=== PATIENT | female | born 1955 | race Caucasian/White ===

== ENCOUNTER → 2019-08-07 15:44 | Outpatient (BNVA) | payer MEDICARE, OTHER, SELFPAY | PROVIDERS: PCP Family Medicine; Visit Provider Family Medicine | DX: R05 Cough (principal); N39.0 Urinary tract infection, site not specified; B37.9 Candidiasis, unspecified; M62.830 Muscle spasm of back; Z87.440 Personal history of urinary (tract) infections | CPT/HCPCS: 81003; 87077; 87086; 87186 ==

== ENCOUNTER → 2021-07-28 16:19 | Outpatient (BNVA) | payer MEDICARE, OTHER, SELFPAY | PROVIDERS: PCP Family Medicine; Visit Provider Nurse Practitioner Family | DX: Z11.52 Encounter for screening for COVID-19 (principal); Z20.822 Contact with and (suspected) exposure to COVID-19 | CPT/HCPCS: 87635 ==

== ENCOUNTER 2024-04-07 13:26 | Emergency (ER) | payer MEDICARE, OTHER, SELFPAY ==
--- NOTE | 2024-04-07 13:27 | ECG_ITS ---
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 Measurements Intervals [place] Rate: 72 P: 31 NC: 178 QRS: -32 QRSD: 81 T: 54 QT: 383 QTc: 421 Interpretive Statements SINUS RHYTHM LEFT AXIS DEVIATION [QRS AXIS < -30] LOW QRS VOLTAGE IN PRECORDIAL LEADS [QRS DEFLECTION < 1.0 mV IN CHEST LEADS] POSSIBLE ANTERIOR MYOCARDIAL INFARCTION , PROBABLY OLD [30 ms Q WAVE IN V3/V4, OR R < 0.2 mV IN V4] No previous ECG available for comparison Electronically Signed On 04-07-2024 16:51:07 CDT by Nasra Bey M.D. [id number]
[2024-04-07 13:35] VITALS: BP 122/73; PULSE 72; RESP 18; TEMP 36.8; O2SAT 98; BMI 44.8
--- NOTE | 2024-04-07 14:57 | XR_ITS ---
WS: [id number] XR chest 1V portable [id number] REASON FOR EXAM: chest pain FINDINGS: The chest is relatively unchanged compared to 11/27/2015. There is borderline cardiomegaly. Widened mediastinum is likely due to excessive mediastinal fat. Nor mal thoracic aorta. Calcified granulomatous disease in both hemithoraces. No acute pulmonary parenchymal or pleural abnormality. XR/XR chest 1V portable [id number] IMPRESSION: Stable chest without acute abnormality.
--- NOTE | 2024-04-07 14:59 | W.ED.CHESTPA ---
HPI - Chest Pain General: Chief Complaint: Chest Pain Stated Complaint: CP Time Seen by Provider: 04/07/24 14:51 History of Present Illness: Presents to the ER with complaints of chest pain under her left breast. Is nonradiating not reproducible with pain. Started about 10 minutes arrival prior to the ER. Patient says she normally has substernal chest pain that radiates to her back every day but this is different than that. Patient said that taking a big deep breath might make it worse but nothing else makes it worse or makes it better. Patient has COPD and is oxygen dependent on 3 L. And gets chronically short of breath with activities. Patient [place] any nausea vomiting or diaphoresis. Related Data Home Medications Medication Instructions Recorded Confirmed amitriptyline 25 mg tablet 25 mg PO .hs 08/07/19 07/28/21 aspirin 81 mg chewable tablet 81 mg PO ONCE 08/07/19 07/28/21 (Leonel Chewable Low Dose Aspirin) bupropion HCl 150 mg tablet,12 hr 150 mg PO BID 08/07/19 07/28/21 sustained-release duloxetine 30 mg capsule,delayed 30 mg PO ONCE 08/07/19 07/28/21 release estradiol 0.5 mg tablet 0.5 mg PO ONCE 08/07/19 07/28/21 fluticasone propionate 50 2 spray intranasal BID 08/07/19 07/28/21 mcg/actuation nasal spray,suspension (Flonase Allergy Relief) gabapentin 800 mg tablet 800 mg PO TID 08/07/19 07/28/21 hydrocodone 5 mg-acetaminophen 325 1 tab PO Q6H PRN 08/07/19 07/28/21 mg tablet hydrocodone 7.5 mg-acetaminophen 1 tab PO Q6H PRN 08/07/19 07/28/21 325 mg tablet hydroxychloroquine 200 mg tablet 200 mg PO BID 08/07/19 07/28/21 hydroxyzine HCl 25 mg tablet 25 mg PO TID PRN 08/07/19 07/28/21 levothyroxine 75 mcg tablet 200 mcg PO ONCE 08/07/19 07/28/21 metformin 500 mg tablet 500 mg PO BID 08/07/19 07/28/21 montelukast 10 mg tablet 10 mg PO ONCE 08/07/19 07/28/21 omega-3 fatty acids 1,000 mg 1,000 mg PO BID 08/07/19 07/28/21 capsule (Fish Oil Concentrate) oxybutynin chloride 5 mg tablet 5 mg PO TID 08/07/19 07/28/21 pioglitazone 15 mg tablet (Actos) 15 mg PO ONCE 08/07/19 07/28/21 sumatriptan succinate 50 mg tablet See Rx Instructions PO .COMPLEX 08/07/19 07/28/21 tramadol 50 mg tablet 50 mg PO Q6H PRN 08/07/19 07/28/21 venlafaxine 37.5 mg tablet 37.5 mg PO DAILY 08/07/19 07/28/21 zolpidem 5 mg tablet 5 mg PO ONCE 08/07/19 07/28/21 Previous Rx's Medication Instructions Recorded baclofen 20 mg tablet 20 mg PO TID #60 tabs 08/07/19 levofloxacin 750 mg tablet 750 mg PO QDAY #7 tabs 01/05/20 (Levaquin) benzonatate 100 mg capsule 100 mg PO BID PRN cough #30 caps 07/28/21 (Tessalon Perles) methylprednisolone 4 mg tablets in See Rx Instructions PO PER PKG DIR 07/28/21 a dose pack (Medrol (Heladio)) #21 ea Allergies Allergy/AdvReac Type Severity Reaction Status Date / Time cephalexin [From Keflex] Allergy Unknown Verified 04/07/24 13:41 clindamycin [From Cleocin] Allergy Unknown Verified 04/07/24 13:41 codeine Allergy Unknown Verified 04/07/24 13:41 erythromycin base Allergy Unknown Verified 04/07/24 13:41 lincomycin [From Lincocin] Allergy Unknown Verified 04/07/24 13:41 meperidine [From Demerol] Allergy Unknown Verified 04/07/24 13:41 Penicillins Allergy Unknown Verified 04/07/24 13:41 Sulfa (Sulfonamide Allergy Unknown Verified 04/07/24 13:41 Antibiotics) Tetracyclines Allergy Unknown Verified 04/07/24 13:41 thiethylperazine [Torecan] Allergy Unknown Verified 04/07/24 13:41 vitamin E (d-alpha Allergy Unknown Verified 04/07/24 13:41 tocopherol) Review of Systems General: Reports: 10 or more systems reviewed and unremarkable except in HPI and below PFSH ED PFSH: Medical History (Updated 04/07/24 @ 17:39 by Ranulfo Santo DO) Diabetes Thyroid disorder GERD (gastroesophageal reflux disease) Social History Smoking and tobacco/nicotine status: never used tobacco/nicotine Alcohol intake: never Substance/Drug Use: never Physical Exam Const: COMMON NORMALS: no acute distress, average body habitus, patient oriented x3, no limitations, healthy appearing, alert and well nourished HENMT: COMMON NORMALS: normocephalic, atraumatic, hearing grossly normal bilaterally, external ears normal, Normal external nose present and moist oral mucous membranes HEAD & SCALP: normocephalic and atraumatic NOSE: Normal external nose present EXTERNAL EAR: Yes external ears normal Neck/C-Spine: COMMON NORMALS: no JVD Chest: COMMONS NORMALS: normal inspection of the chest and normal palpation of entire chest wall Resp: COMMON NORMALS: normal respiratory effort, No retractions, No use of accessory muscles and clear to auscultation bilaterally AUSCULTATION: clear to auscultation bilaterally Cardio: COMMON NORMALS: no JVD, regular rate, regular rhythm, S1 normal heart sound present, S2 normal heart sound present, No gallops present (Cardio), No clicks present (Cardio), No murmurs present (Cardio) and No rub (Cardio) RATE: regular rate RHYTHM: regular rhythm HEART SOUNDS: S1 normal heart sound present and S2 normal heart sound present GI: COMMON NORMALS: Normal to inspection, nondistended, normoactive bowel sounds present, Soft to palpation, non-tender, No hepatosplenomegaly present and no masses PALPATION: Yes Soft to palpation and Yes No hepatosplenomegaly present Neuro: COMMON NORMALS: patient oriented x3 SENSORIUM/ORIENTATION: Yes alert Course Vital Signs: Vital signs: Vital Signs Temperature 98.2 F 04/07/24 13:35 Pulse Rate 63 04/07/24 15:39 Respiratory Rate 18 04/07/24 13:35 Blood Pressure 154/47 04/07/24 15:39 Pulse Oximetry 96 04/07/24 15:39 Oxygen Delivery Me thod Room Air 04/07/24 15:39 Oxygen Flow Rate 3 04/07/24 13:35 MDM - Chest Pain Medical Decision Making Upon further talking to the patient patient said that she was using her oxygen upstairs in her son's room and she was unnoticed at the bottle ran out. When she was hooked up to our oxygen she started feeling better immediately and eventually work her way back up to normal. Chest pain workup was started which was fairly benign. Patient was feeling much better these results was discussed with the patient. Patient is ready to be discharged. Differential Diagnosis Unlikely acute massive pulmonary embolism, acute respiratory failure, acute myocardial infarction, cardiac arrest or sudden cardiac Medical Records I reviewed the patient's medical records. Lab Data I reviewed the patient's lab results. 04/07/24 15:22 04/07/24 15:22 Radiology Impressions Chest X-Ray 04/07/24 14:57 IMPRESSION: Stable chest without acute abnormality. Laboratory Results WBC 5.54 10^3/uL (3.29-11.43) 04/07/24 15: RBC 4.23 10^6/uL (3.85-5.65) 04/07/24 15:22 Hgb 13.20 g/dL (11.27-16.99) 04/07/24 15:22 Hct 41.0 % (36-47) 04/07/24 15:22 MCV 96.9 fl (85-98) 04/07/24 15:22 MCH 31.2 pg (27-33) 04/07/24 15:22 MCHC 32.2 g/dL (30-55) 04/07/24 15:22 RDW 12.6 % (12.1-15.1) 04/07/24 15:22 Plt Count 297 10^3/cmm (157-399) 04/07/24 15:22 MPV 9.9 fL (7.4-10.4) 04/07/24 15:22 Neut % (Auto) 52.2 % 04/07/24 15:22 Lymph % (Auto) 35.2 % 04/07/24 15:22 [place] % (Auto) 9.9 % 04/07/24 15:22 Eos % (Auto) 1.6 % 04/07/24 15:22 Baso % (Auto) 0.9 % 04/07/24 15:22 Neut # (Auto) 2.89 10^3/uL (1.8-7.7) 04/07/24 15:22 Lymph # (Auto) 2.0 10^3/uL (0.8-4.8) 04/07/24 15:22 [place] # (Auto) 0.6 10^3/uL (0.2-0.9) 04/07/24 15:22 Eos # (Auto) 0.1 10^3/uL (0.0-0.8) 04/07/24 15:22 Baso # (Auto) 0.1 10^3/uL (0.0-0.1) 04/07/24 15:22 Nucleated RBC % (auto) 0 % 04/07/24 15:22 Nucleated RBCs # 0.0 /100WBC 04/07/24 15:22 Sodium 142 mmol/L (136-145) 04/07/24 15:22 Potassium 4.3 mmol/L (3.5-5.1) 04/07/24 15:22 Chloride 104 mmol/L (98-107) 04/07/24 15:22 Carbon Dioxide 28 mmol/L (22-29) 04/07/24 15:22 Anion Gap 14.3 (5-19) 04/07/24 15:22 BUN 14 mg/dL (8-23) 04/07/24 15:22 Creatinine 0.6 mg/dL (0.5-0.9) 04/07/24 15:22 GFR Calculation 99.4 mL/min (90-130) 04/07/24 15:22 Glucose 119 mg/dL (65-115) H 04/07/24 15:22 Calculated Osmolality 296 mOsm/kg (285-295) H 04/07/24 15:22 Calcium 9.3 mg/dL (8.5-10.5) 04/07/24 15:22 Total Bilirubin 0.2 mg/dL (0.15-1.2) 04/07/24 15:22 AST 17 U/L (0-32) 04/07/24 15:22 ALT 14 U/L (0-33) 04/07/24 15:22 Alkaline Phosphatase 98 U/L (35-105) 04/07/24 15:22 Troponin T Baseline 7 ng/L (0-10) 04/07/24 15:22 Troponin T 120 Minute 7.72 ng/L (0-10) 04/07/24 16:42 Delta Troponin T 0.72 ABS# (0-10) 04/07/24 16:42 Total Protein 6.8 g/dL (6.6-8.7) 04/07/24 15:22 Albumin 4.2 g/dL (3.5-5.2) 04/07/24 15:22 Globulin 2.6 g/dL (1.3-4.6) 04/07/24 15:22 All radiology interpretation(s) finalized by discharge EKG Data EKG 1: I personally reviewed and interpreted this EKG as follows: EKG interpretation date: 04/07/24 Interpretation: Rate 72 beats minute, MO interval 178, QRS 81, QTc of 421, sinus rhythm EKG 2: I personally reviewed and interpreted this EKG as follows: EKG interpretation date: 04/07/24 EKG interpretation time: 15:44 Interpretation: Ventricular rate 64 bpm, MO interval 199, QRS duration 85, QTc of 417, sinus rhythm Discharge Plan Discharge Patient Disposition: Home Clinical Impression: Chest pain Qualifiers: Chest pain type: unspecified Qualified Code(s): R07.9 - Chest pain, unspecified Condition: Stable Prescriptions: No Action benzonatate [Tessalon Perles] 100 mg capsule 100 mg PO BID PRN (Reason: cough) Qty: 30 1RF methylprednisolone [Medrol (Heladio)] 4 mg tablets,dose pack See Rx Instructions PO PER PKG DIR Qty: 21 0RF Rx Instructions: PO PER PKG DIR montelukast 10 mg tablet 10 mg PO ONCE amitriptyline 25 mg tablet 25 mg PO .hs gabapentin 800 mg tablet 800 mg PO TID omega-3 fatty acids [Fish Oil Concentrate] 1,000 mg capsule 1,000 mg PO BID venlafaxine 37.5 mg tablet 37.5 mg PO DAILY estradiol 0.5 mg tablet 0.5 mg PO ONCE sumatriptan succinate 50 mg tablet See Rx Instructions PO .COMPLEX Rx Instructions: as directed aspirin [Leonel Chewable Aspirin] 81 mg tablet,chewable 81 mg PO ONCE metformin 500 mg tablet 500 mg PO BID fluticasone propionate [Flonase Allergy Relief] 50 mcg/actuation spray,suspension 2 spray INTRANASAL BID oxybutynin chloride 5 mg tablet 5 mg PO TID duloxetine 30 mg capsule,delayed release(DR/EC) 30 mg PO ONCE bupropion HCl 150 mg tablet sustained-release 12 hr 150 mg PO BID hydrocodone-acetaminophen 7.5-325 mg tablet 1 tab PO Q6H PRN hydrocodone-acetaminophen 5-325 mg tablet 1 tab PO Q6H PRN hydroxychloroquine 200 mg tablet 200 mg PO BID hydroxyzine HCl 25 mg tablet 25 mg PO TID PRN levothyroxine 75 mcg tablet 200 mcg PO ONCE pioglitazone [Actos] 15 mg tablet 15 mg PO ONCE tramadol 50 mg tablet 50 mg PO Q6H PRN zolpidem 5 mg tablet 5 mg PO ONCE baclofen 20 mg tablet 20 mg PO TID Qty: 60 1RF levofloxacin [Levaquin] 750 mg tablet 750 mg PO QDAY Qty: 7 0RF Discharge Orders: Discharge ED (Routine); Ordered 04/07/24 Ordered By: Ranulfo Santo Referrals: Mikala Logan MD [Primary Care Provider] - 1 week Patient Instructions: Chest Pain (DC) Activity Restrictions/Additional Instructions: Your evaluation ER did not show any acute cause of your chest pain. Is felt to be noncardiac in nature. Please follow-up with your family proximal physician within next 7 days for further evaluation and treatment as needed. If your chest pain returns or worsens please return to the ER. Coding Level of Care Code ED Video Production Coordinator for Sebastien Mina
[2024-04-07 15:39] VITALS: BP 154/47; PULSE 63; O2SAT 96
[2024-04-07 15:44] LABS: Basophils # 0.1 10^3/uL (0.0-0.1); Basophils % 0.9 %; Eosinophils # 0.1 10^3/uL (0.0-0.8); Eosinophils % 1.6 %; Lymphocytes % 35.2 %; Mean Corpuscular HGB Conc 32.2 g/dL (30-55); Mean Corpuscular Hemoglobin 31.2 pg (27-33); Mean Corpuscular Volume 96.9 fl (85-98); Mean Platelet Volume 9.9 fL (7.4-10.4); Monocytes # 0.6 10^3/uL (0.2-0.9); Monocytes % 9.9 %; Neutrophils # 2.89 10^3/uL (1.8-7.7); Neutrophils % 52.2 %; Nucleated Red Blood Cells % 0 %; Platelet Count 297 10^3/cmm (157-399); Red Blood Count 4.23 10^6/uL (3.85-5.65); Red Cell Distribution Width 12.6 % (12.1-15.1); White Blood Count 5.54 10^3/uL (3.29-11.43)
--- NOTE | 2024-04-07 15:44 | ECG_ITS ---
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 Measurements Intervals [place] Rate: 64 P: 31 [place]: 199 QRS: -28 QRSD: 85 T: 51 QT: 407 QTc: 423 Interpretive Statements SINUS RHYTHM BORDERLINE LEFT AXIS DEVIATION [QRS AXIS < -20] Compared to ECG 04/07/2024 13:33:16 Myocardial infarct finding no longer present Electronically Signed On 04-07-2024 16:56:03 CDT by Nasra Bey M.D. [id number]
[2024-04-07 15:56] LABS: Troponin(5th) Baseline 7 ng/L (0-10)
[2024-04-07 15:59] LABS: Alanine Aminotransferase 14 U/L (0-33); Albumin Level 4.2 g/dL (3.5-5.2); Alkaline Phosphatase 98 U/L (35-105); Anion Gap 14.3 (5-19); Aspartate Amino Transferase 17 U/L (0-32); Blood Urea Nitrogen 14 mg/dL (8-23); Calcium 9.3 mg/dL (8.5-10.5); Carbon Dioxide 28 mmol/L (22-29); Chloride 104 mmol/L (98-107); Creatinine Clr Calc Pharmacy 97.6055; Globulin 2.6 g/dL (1.3-4.6); Glomerular Filtration Rate 99.4 mL/min (90-130); Glucose 119 mg/dL (65-115); Osmolality Calculated 296 mOsm/kg (285-295); Potassium 4.3 mmol/L (3.5-5.1); Sodium 142 mmol/L (136-145); Total Bilirubin 0.2 mg/dL (0.15-1.2); Total Protein 6.8 g/dL (6.6-8.7)
[2024-04-07 17:19] LABS: Troponin 5 2HR 7.72 ng/L (0-10); Troponin 5 2HR Delta 0.72 ABS# (0-10)
[2024-04-07 17:43] VITALS: BP 133/99; PULSE 80; O2SAT 96
[2024-04-07 17:54] VITALS: BP 133/89; PULSE 71; O2SAT 96
== END 2024-04-07 17:57 | disposition home or self-care (01) ==
PROVIDERS: Emergency Provider Emergency Medicine; PCP Family Medicine
DX: R07.9 Chest pain, unspecified (principal); Z79.82 Long term (current) use of aspirin; Z79.84 Long term (current) use of oral hypoglycemic drugs; E11.9 Type 2 diabetes mellitus without complications
CPT/HCPCS: 36415; 71045; 80053; 84484; 85025; 93005; 99285